=== PATIENT | female | born 1980 | race Two or more races ===

== ENCOUNTER 2023-11-05 18:40 | Emergency (ER) | payer OTHER ==
[~2023-11-05] VITALS: Ht 162.6 cm; Wt 68.0 kg
[2023-11-05] MEDS ORDERED: LEXAPRO20 MG PO (19:02)
[2023-11-05] MEDS ORDERED: FAMOtidine 10 MG/ML (4ML VIAL) IV ONE (19:15)
[2023-11-05] MEDS ORDERED: 0.9 % SODIUM CHLORIDE 1,000 ML IV ONE (19:15)
[2023-11-05] MEDS ORDERED: ONDANSETRON HCL 2 MG/ML VIAL IV ONE (19:15)
[2023-11-05 19:31] LABS: HEMATOCRIT 41.9 % (36.0-45.00); HEMOGLOBIN 14.4 g/dL (12.0-15.00); MEAN CELL VOLUME 88.6 fL (80.00-100.00); MEAN CORPUSCULAR HEMOGLOBIN 30.4 pg (27.00-32.0); MEAN CORPUSCULAR HGB CONC 34.3 g/dl (32.0-36.0); PLATELET COUNT 315 K/uL (150-450); RED BLOOD COUNT 4.73 M/uL (4.00-6.00); RED CELL DISTRIBUTION WIDTH 13.3 % (11.5-14.5)
[2023-11-05 19:55] LABS: ALKALINE PHOSPHATASE 43 U/L (50-136); ALT/SGPT 21 U/L (12-78); AMYLASE 60 U/L (25-115); ANION GAP 11 (10.0-20.0); AST/SGOT 20 U/L (15-37); BILIRUBIN TOTAL 1.19 mg/dL (0.3-1.2); BLOOD UREA NITROGEN 20 mg/dL (7-18); BUN CREA RATIO 27 (7.0-25.0); CALCIUM 8.5 mg/dL (8.5-10.1); CARBON DIOXIDE 27 mEq/L (21-32); CHLORIDE 105 mmol/L (98-107); CREATININE SERUM 0.74 mg/dL (0.55-1.02); GFR 86.06; GLOBULINA 3.6 G/DL (2.4-3.5); GLUCOSE FASTING 102 mg/dL (65-100); OSMOLALITY SERUM 280 MOSM/KG (275-295); POTASSIUM 3.69 mEq/L (3.5-5.1); SODIUM 139 mmol/L (136-145); TOTAL PROTEIN 7.6 gm/dL (6.4-8.2)
[2023-11-05 20:00] LABS: HCG QUANTITATIVE < 1 mUI/mL (1-3); LIPASE 130 U/L (13-75)
[2023-11-05 20:20] LABS: URINE APPEARANCE Cloudy; URINE BILIRRUBIN Negative (NEGATIVE); URINE BLOOD Negative; URINE COLOR Yellow; URINE GLUCOSE Negative (NEGATIVE); URINE KETONE Trace (NEGATIVE); URINE LEUKOCYTE Negative; URINE NITRATE Negative; URINE PROTEIN Trace (NEGATIVE)
[2023-11-05 20:24] LABS: URINE BACTERIA 899.4 uL (0.0-1933); URINE EPITHELIAL CELLS 16.2 uL (0.0-38.8); URINE RBC 5.3 uL (0.0-20.8); URINE WBC 20.8 uL (0.0-23.2)
[2023-11-05 20:32] LABS: URINE CAST 0.15 uL (0.0-1.40)
[2023-11-05] MEDS ORDERED: CEFTRIAXONE SODIUM 1,000 MG VIAL IM ONE (23:30)
[2023-11-05] MEDS ORDERED: PEPCID AC20 MG PO (23:32)
[2023-11-05] MEDS ORDERED: KETO10TA2 PO (23:32)
== END 2023-11-05 23:44 | disposition home or self-care (01) ==
LOC: ER 18:40
PROVIDERS: General Practice
DX: N73.0 Acute parametritis and pelvic cellulitis (principal); N83.201 Unspecified ovarian cyst, right side